=== PATIENT | female | born 1940 | race Caucasian/White ===

== ENCOUNTER 2019-04-04 13:41 | Emergency (ER) | payer MEDICARE, SELFPAY ==
[2019-04-04 13:45] VITALS: BP 139/66; PULSE 92; RESP 16; TEMP 37.3; O2SAT 97; BMI 24.4
--- NOTE | 2019-04-04 14:10 | ED.EYEPROB ---
HPI - Eye Problem <Lily Goldman PA-C - Last Filed: 04/04/19 20:57> General Chief complaint: Eye Problems Stated complaint: Something in left eye Time Seen by Provider: 04/04/19 13:50 Source: patient Mode of arrival: ambulatory Limitations: no limitations History of Present Illness HPI Narrative: This 78-year-old female states she was out doing some weeding and planting and had foreign body sensation her left eye. She irrigated this with a full bottle of artificial tears, but still feels like there is a foreign body sensation on the medial part of the eye and under the upper lid. She states her looked at this with a magnifier and did not see anything in her eye. She did not note that anything specific scratched her eye. She states she has some slight clear tearing, no vision change. She denies any other new symptoms. She was wearing her glasses at the time and states are visual acuity findings here are typical for her Related Data Previous Rx's Medication Instructions Recorded erythromycin 0.5 inch EYE-LEFT Q3-4H PRN 7 Days 04/04/19 #1 gram Review of Systems <Lily Goldman PA-C - Last Filed: 04/04/19 20:57> Review of Systems ROS Unobtainable: All systems reviewed & are unremarkable except as noted in HPI and below PFSH <Lily Goldman PA-C - Last Filed: 04/04/19 20:57> Medical History (Updated 04/04/19 @ 14:44 by Lily Goldman PA-C) HTN (hypertension) (Chronic) Heart palpitations (Chronic) Hyperlipidemia (Chronic) Surgical History (Updated 04/04/19 @ 14:44 by Lily Goldman PA-C) S/P T&A (status post tonsillectomy and adenoidectomy) (Resolved) Status post Dupuytren's fasciectomy (Resolved) Status post cataract surgery (Resolved) Social History Smoking Status: Never smoker Social History Smoking Status: Never smoker Exam <Lily Goldman PA-C - Last Filed: 04/04/19 20:57> Narrative Exam Narrative: GENERAL APPEARANCE: Patient sitting comfortably, in no distress HEENT: PERRLA, EOMI, the medial left sclera is mildly injected. No visible foreign body, no foreign body on swab swept under the lids. There are some small abrasions on fluorescein stain, no punctate lesions. Vision: OD 20/40, OS 20/25 LUNGS: Clear to auscultation bilaterally. HEART: Rate and rhythm regular without murmur, normal S1 and S2, no S3 or S4. Initial Vital Signs Initial Vital Signs: Vital Signs Temperature 99.1 F 04/04/19 13:45 Pulse Rate 92 H 04/04/19 13:45 Respiratory Rate 16 04/04/19 13:45 Blood Pressure 139/66 04/04/19 13:45 Pulse Oximetry 97 04/04/19 13:45 <Rosalba Morton DO - Last Filed: 04/08/19 07:47> Initial Vital Signs Initial Vital Signs: Vital Signs Temperature 99.1 F 04/04/19 13:45 Pulse Rate 92 H 04/04/19 13:45 Respiratory Rate 16 04/04/19 13:45 Blood Pressure 139/66 04/04/19 13:45 Pulse Oximetry 97 04/04/19 13:45 Course <Lily Goldman PA-C - Last Filed: 04/04/19 20:57> Vital Signs - 8 hr 04/04/19 13:45 04/04/19 14:46 Temperature 99.1 F Pulse Rate 92 H 59 L Respiratory Rate 16 16 Blood Pressure 139/66 138/74 Pulse Oximetry 97 98 <Rosalba Morton DO - Last Filed: 04/08/19 07:47> Vital Signs - 8 hr 04/04/19 13:45 04/04/19 14:46 Temperature 99.1 F Pulse Rate 92 H 59 L Respiratory Rate 16 16 Blood Pressure 139/66 138/74 Pulse Oximetry 97 98 Discharge Plan Departure Patient Disposition: Home Clinical Impression: Corneal abrasion Qualifiers: Encounter type: initial encounter Laterality: left Qualified Code(s): S05.02XA - Injury of conjunctiva and corneal abrasion without foreign body, left eye, initial encounter Discharge Date/Time: 04/04/19 14:49 Interventions: ED Discharge Assessment Last Done: 04/04/19 14:46 Instructions: DI for Corneal Abrasion Activity Restrictions/Additional Instructions: As we talked about, this should be improving by tomorrow, if it is not, or if you have worsening pain or vision change, you do need to see Ophthalmology tomorrow. I have given you the number for Dr. Hodges but you can see any of the ophthalmologists in the local office. If needed, just call and let them know you were seen in the emergency room and need to be seen tomorrow since not better. Please warehouse order picker the erythromycin ointment from the pharmacy right away and use it every 3 hours today while you are awake, then you can reduce use as instructed as long as you are getting better. Apply warm packs as needed for pain and to help with drainage. Prescriptions: New erythromycin 5 mg/gram (0.5 %) ointment 0.5 inch EYE-LEFT Q3-4H PRN (Reason: eye abrasion) 7 Days Qty: 1 RF: 0 Referrals: Jarad Hodges MD [Physician] - <Rosalba Morton DO - Last Filed: 04/08/19 07:47> Cosign ED Attending Cosignature Attestation: I was immediately available in the department for consultation. This documentation has been reviewed. Supervised by Rosalba Morton DO
[2019-04-04 14:46] VITALS: BP 138/74; PULSE 59; RESP 16; O2SAT 98
== END 2019-04-04 14:49 | disposition home or self-care (01) ==
LOC: ED 14:50
PROVIDERS: Emergency Provider Internal Medicine
DX: S05.02XA Injury of conjunctiva and corneal abrasion without foreign body, left eye, initial encounter (principal); Y93.H2 Activity, gardening and landscaping
CPT/HCPCS: 99282; 99283